=== PATIENT | female | born 1965 | race Asian ===

== ENCOUNTER 2022-11-21 12:23 | Emergency (ER) | payer BC, SELFPAY ==
[2022-11-21 12:32] VITALS: BP 111/74; PULSE 75; RESP 16; TEMP 36.8; O2SAT 96; BMI 25.2
--- NOTE | 2022-11-21 14:26 | ED_ITS ---
HPI - General Adult General Date Seen: 11/21/22 Chief complaint: Ear/Nose/Throat Problem Stated complaint: Ring ear and an echo Time Seen by Provider: 11/21/22 13:10 Source: patient Mode of arrival: ambulatory Limitations: no limitations History of Present Illness HPI narrative: Patient is a 56-year-old woman who presents for evaluation of tenderness. She tells me that she has had high-pitched tinnitus in her right ear for quite some time, but about a week ago developed an additional pitched tinnitus which is lower pitched in the right ear as well. She specifically denies any hearing loss, she has not had vertigo, she has not had any other facial weakness or numbness, difficulty with swallowing, speech, headache, or other problems. She does say that this additional tinnitus happen on the heels of a choking episode where she was coughing a lot. She was seen several days ago for these symptoms, and at that time they thought she might have an ear infection, it sounds like probably an external ear infection but she was started on both ear drops and azithromycin. She has been taking those, but continues to have tinnitus. 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 Related Data Home Medications Medication Instructions Recorded Confirmed azithromycin 250 mg tablet 250 mg PO DAILY 11/21/22 11/21/22 losartan 50 mg tablet (Cozaar) 50 mg PO DAILY 11/21/22 11/21/22 [id number]-nrzrtwjmz-xebyfkxht 3.5 3 drp otic (ear) Q8H 11/21/22 11/21/22 mg-10,000 unit/mL-1 % ear drops,susp Allergies Allergy/AdvReac Type Severity Reaction Status Date / Time iodine Allergy Severe Anaphylaxis Verified 11/21/22 12:45 aspirin Allergy Mild Verified 11/21/22 12:45 diphenhydramine Allergy Mild Verified 11/21/22 12:45 ibuprofen [From Motrin] Allergy Mild Verified 11/21/22 12:45 metoprolol Allergy Mild Verified 11/21/22 12:45 DAMARIS Inhibitors Allergy Unknown Verified 11/21/22 12:45 iopamidol Allergy Unknown Verified 11/21/22 12:45 levofloxacin Allergy Unknown Verified 11/21/22 12:45 Penicillins Allergy Unknown Verified 11/21/22 12:45 spironolactone Allergy Unknown Verified 11/21/22 12:46 Sulfa (Sulfonamide Allergy Unknown Verified 11/21/22 12:45 Antibiotics) valsartan [From Diovan] Allergy Unknown Verified 11/21/22 12:46 diuretics Allergy Unknown Uncoded 11/21/22 12:45 hydrochlorothaizide Allergy Unknown Uncoded 11/21/22 12:46 iodinated diagnostic Allergy Unknown Uncoded 11/21/22 12:45 maxide Allergy Unknown Uncoded 11/21/22 12:45 potasium Allergy Unknown Uncoded 11/21/22 12:46 vit D2 Allergy Unknown Uncoded 11/21/22 12:45 Review of Systems Status of ROS: Reports: 6 or more systems reviewed and unremarkable except as noted in History and below PFSH PFS Social History Smoking Status: Never smoker Do you use any of these nicotine containing products: None How often do you have a drink containing alcohol: never How often do you have six or more drinks on one occasion: Never AUDIT-C Alcohol total score: 0 Non-prescribed substance use: denies use Exam Narrative: Exam Narrative: Vital signs reviewed In general, an alert, nontoxic woman. Head: Normocephalic, atraumatic. Eyes: Pupils are equal reactive, extraocular movements are full. ENT: Bilateral canals are normal, I do not see any evidence of erythema or edema in the right canal, TM is normal. Landmarks are seen. Pinna is normal, no adenopathy or erythema. Hearing is grossly normal. Neck: Supple without adenopathy or masses. Const: Vital Signs, click to edit/add: Vital Signs - 24 hr 11/21/22 12:32 Temperature 98.3 F Pulse Rate [Right Pulse Oximeter] 75 Respiratory Rate 16 Blood Pressure [Ri ght Upper Arm] 111/74 Pulse Oximetry 96 Oxygen Delivery Me thod Room Air Course Course Hospital Course: I was able to talk briefly with Dr. Diallo, he can see her in clinic next week with audiology follow-up. I have talked with her about imaging, as she was hoping to do a CT scan today. Discussed with her that while imaging may ultimately be recommended, I would recommend ENT followup 1st. Number one, I do not know that imaging is necessary, and 2., if it is, I do not know that CT scan would be the best choice. Therefore, I think imaging is necessary today. She does not have any neurologic complaints no deficits on exam. I think the likelihood of her symptoms being due to a mass or stroke is very low. Discussed with her that it can be difficult to treat tinnitus, and that I do not have a medication that is likely to magically resolve this. Per Dr. Diallo's recommendation I am starting her on prednisone, however she says that she is very sensitive to all medications and so she is unwilling to take a full dose. She says she will take half dose and see if it is helpful. Have tried to stress to her that I do not expect that this will necessarily fix her tinnitus. Return for new or worsening symptoms. Vital Signs Vital signs: Initial Vital Signs Temperature 98.3 F 11/21/22 12:32 Temperature Source Temporal Artery Scan 11/21/22 12:32 Pulse Rate 75 11/21/22 12:32 Respiratory Rate 16 11/21/22 12:32 Blood Pressure 111/74 11/21/22 12:32 Blood Pressure Mean 86 11/21/22 12:32 Blood Pressure Position Sitting 11/21/22 12:32 Pulse Oximetry 96 11/21/22 12:32 Oxygen Delivery Method 11/21/22 12:32 Vital Signs Temperature 98.3 F 11/21/22 12:32 Pulse Rate 75 11/21/22 12:32 Respiratory Rate 16 11/21/22 12:32 Blood Pressure 111/74 11/21/22 12:32 Pulse Oximetry 96 11/21/22 12:32 Oxygen Delivery Method 11/21/22 12:32 Temperature 98.3 F 11/21/22 12:32 Pulse Rate 75 11/21/22 12:32 Respiratory Rate 16 11/21/22 12:32 Blood Pressure 111/74 11/21/22 12:32 Pulse Oximetry 96 11/21/22 12:32 Oxygen Delivery Method 11/21/22 12:32 Discharge Plan Discharge Clinical Impression: Tinnitus of right ear Patient Disposition: Home, Self-Care Condition: Stable Instructions: Tinnitus (ED) Additional Instructions: Dr. Diallo would recommend that he see you next week, as the rim fire charger operator is g one this week. He recommends that I prescribe steroids in the meantime, and that you use ear plugs on the airplane. You can buy these at any drugstore. Call the clinic tomorrow, to schedule an appointment with Dr. Diallo. His clinic is often booked, so if they tell you that he is full, you can say that the ER doctor talked with him and it is okay to put you on the schedule for next week to see him and for audiology. Take prednisone as follows: 3 tabs daily for 3 days, then 2 tabs daily for 3 days, then 1 tab daily for 3 days. Prescriptions: No Action losartan [Cozaar] 50 mg tablet 50 mg PO DAILY drtwuowk-nxmnqqikw-GV 3.5-10,000-1 mg/mL-unit/mL-% drops,suspension 3 drp otic (ear) Q8H Label Comments: SHAKE LIQUID AND INSTILL 3 DROPS TO RIGHT EAR THREE TIMES DAILY FOR 7 DAYS azithromycin 250 mg tablet 250 mg PO DAILY Label Comments: TAKE 2 TABLETS TODAY AND THEN 1 TABLET DAYS 2-5 BY MOUTH Follow Up/Referrals: Lynne Funk MD [Primary Care Provider] - Stand Alone Forms: [employer] Info Instructions
== END 2022-11-21 14:28 | disposition home or self-care (01) ==
LOC: ED 13:56
PROVIDERS: Emergency Provider Emergency Medicine; PCP Family Medicine
DX: H93.11 Tinnitus, right ear (principal)
CPT/HCPCS: 99283; 99284

== ENCOUNTER 2024-10-24 19:53 | Emergency (ER) | payer BC, SELFPAY ==
--- OUTSIDE RECORDS SUMMARY | 2024-10-24 19:54 | XMS_ITS | Clinical Summary ---
Author Organization [facility] Address [address] [place] [address] Care Team Providers Care Supervisor Toy Assembly Name Role Phone Unavailable Primary Care Provider Unavailabl e Source Comments Patient records contain information from all sites at [facility]. For routine questions regarding patient records, call [phone] during business hours, M-F 8:00 AM - 5:00 PM Central Time. Record requests for emergency care only can be directed to [phone] at any time.[facility] Active Problems Problem Noted Date Diagnosed Date Dizziness 03/23/2023 Tinnitus Right 03/23/2023 Loss Hearing Mixed Conduct Sensorineural 023 Immunizations Immunization Administration Dates Next Due Influenza Split 06/19/2013 Social History Tobacco Use Types Packs/Day Years Used Date Smoking Tobacco: Never Nutrition Answer Date Recorded Nutrition: EVOO Fat Source Unknown 11/21 Nutrition: Servings of Fruits/Vegetables per Day Not on file 11/21/2020 Dental Answer Date Recorded Dental: Regular Dentist Unknown 11/22/19 21 Comments Unknown Sex and Gender Information Value Date Recorded Sex Assigned at Not on file 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 Pulse 61 11/02/2013 1:14 PM LINEN ROOM HOUSEPERSON Vital sign result from Clinical Notes. Temperature - - Respiratory Rate - - Oxygen Saturation - - Inhaled Oxygen Concentration - - Weight 64.3 kg (141 lb 12.1 oz) 10/26/2013 1:57 PM LINEN ROOM HOUSEPERSON Vital sign result from Clinical Notes. Height 163 cm (5' 4.17) 09/26/2013 4:1 3 PM LINEN ROOM HOUSEPERSON Body Mass Index 24.2 09/26/2013 4:13 PM LINEN ROOM HOUSEPERSON Plan of Treatment Health Maintenance Due Date Last Done Comments CT Colonography 1963 Cologuard 1965 Colonoscopy 1965 Colorectal Cancer Screening 1963 FIT 1965 HIV Screening 1965 Hepatitis C Screening 1965 Pneumococcal vaccine (50+ years) (1 of 2 - PCV) 12/04/1982 Cervical/Vaginal Cancer Screening 09/19/2014 09/19/2011 (Performed elsewhere) Zoster Vaccines (2 of 2) 12/31/2021 11/05/2021 Mammogram 11/19/2023 11/18/2022, 10/20, 11/04/2020, Additional history exists COVID-19 Vaccine ( season) 2024 08/08/2022, 10/02/2021, 01/13/2021, Additional history exists Influenza Vaccine (#1) 2024 , 08/01/2022, 07/08/2021, Additional history exists Depression Screening (Annual PHQ-2) 09/19/2024 Fasting Glucose for Diabetes Screening 02/10/2026 02/10/2023, 11/18/2022, 11/05/2021, Additional history exists Lipid (Cholesterol) Screening 02/11/2028 02/10/2023, 11/18/2022, 11/05/2021, Additional history exists DTaP,Tdap,and Td Vaccines (3 - Td or Tdap) 11/05/2031 11/05/2021, 08/25/2010 Hepatitis B Vaccines Aged Out No long er eligible based on patient's age to complete this topic IPV Vaccines Aged Out No longer eligi ble based on patient's age to complete this topic Procedures Procedure Name Priority Date/Time Associated Diagnosis Comments GLUCOSE, FASTING, S/P Routine 11/01/2013 10:32 AM LINEN ROOM HOUSEPERSON LIPID PANEL, S Routine 10/08/2013 3:23 PM LINEN ROOM HOUSEPERSON from Last 3 Months or Most Recently Relevant to Health Maintenance Results * Glucose, Fasting (11/01/2013 10:32 AM LINEN ROOM HOUSEPERSON) Last Intake 14 HR [facility] Glucose, P 97 70 - 100 MG/DL [facility] 11/01/2013 10:3 2 AM LINEN ROOM HOUSEPERSON 11/01/2013 10:32 AM LINEN ROOM HOUSEPERSON us Mk Schaffer M.D. LAB BLOOD NON ADD-ON Final Res ult [facility] [address] [place] [address], [facility] * (ABNORMAL) Lipid Panel (10/08/2013 3:23 PM LINEN ROOM HOUSEPERSON) Cholesterol, Total 230 SeeComment MG/DL [facility] Comment: Reference Range: NCEP guidelines (ages 18y and up) Desirable: <200 Borderline high: 200-239 High: > or =240 Triglycerides 467(H) SeeComment MG/DL [facility] Comment: Reference Range: NCEP guidelines (ages 18y and up) Normal: <150 Borderline high: 150-199 High: 200-499 Very high: > or =500 Cholesterol, Non-HDL, Calculated 189(H) SeeComment MG/DL [facility] Comment: Reference Range: NCEP guidelines Desirable: <130 Borderline high: 130-159 High: 160-189 Very high: > or =190 Calculated LDL . MG/DL [facility] Comment: Triglyceride >400 mg/dL. Calculated LDL is only valid on samples with triglyceride < or = 400 mg/dL. REVISED REPORT, Previously reported as: TNP Triglyceride >400 mg/dL. Calculated LDL is only valid on samples with triglyceride < or = 400 mg/dL. (Reported 10/08/2013 16:53) Cholesterol, HDL, S 41 SeeComment MG/DL [facility] Comment: Reference Range: NCEP guidelines (ages 18y and up) Low: <40 Normal: 40-59 High : > or =60 10/08/2013 3:23 PM LINEN ROOM HOUSEPERSON 10/08/2013 3:23 PM LINEN ROOM HOUSEPERSON Mk Schaffer M.D. LAB BLOOD ADD-ON Final Result [facility] [address] [place] [address], [facility] from Last 3 Months or Most Recently Relevant to Health Maintenance Insurance [id number]
--- OUTSIDE RECORDS SUMMARY | 2024-10-24 19:55 | XMS_ITS | Referral Summary ---
Author Organization [facility] Address [address] [place] [id number] Care Team Providers Care Manager Talent Acquisition Name Role Phone Amy Ragsdale MD Unavailable [phone] Felicitas Martin AuD Unavailable [phone] Amy Ragsdale MD Unavailable [phone] Allergies Active Allergy Reactions Criticality Noted Date Comments Allen Inhibitors Angioedema,Cough High 01/30/2013 Aspirin Anaphylaxis High 02/03/2011 Clarithromycin Other (See Comments) ,GI Disturbance 10/16/2015 Dexamethasone Unknown 03/21/2023 Diphenhydramine Other (See Comments) Low 04/23/2011 Ergocalciferol Headache 10/05/2010 Ibuprofen GI Disturbance High 02/03/2011 Iodinated Contrast Media Anaphylaxis High 08/05/2010 Iodine Anaphylaxis High 11/21/2022 Levofloxacin Rash Low 03/02/2012 Metoprolol Dizziness,Other (See Comments) High 01/30/2013 Penicillins Anaphylaxis High 08/04/2007 Potassium Unknown 03/21/2023 Spironolactone Unknown 11/21/2022 Sulfa Antibiotics Anaphylaxis High 02/10/2023 Valsartan Unknown 11/21/2022 Medications COZAAR 50 MG tablet TAKE 2 TABLETS BY MOUTH PER DAY Active estradiol (ESTRACE) 0.1 MG/GM vaginal cream Place 1 g vaginally Active Social History Tobacco Use Types Packs/Day Years Used Date Smoking Tobacco: Never Smokeless Tobacco: Never Tobacco Cessation:Counseling Given: Not Answered Alcohol Use Standard Drinks/Week Comments Not Currently 0 (1 standard drink = 0.6 oz pur e alcohol) PHQ-2 Answer Date Recorded PHQ-2 Score 3 04/19/2023 Adolescent Education Answer Date Record ed Getting School Help Needed Not on file 06/15 Comments Unknown Sex and Gender Information Value Date Recorded Sex Assigned at Not on file 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 Gender Identity Not on file Sexual Orientation Not on file Last Filed Vital Signs Vital Sign Reading Time Taken Comments Blood Pressure 126/83 04/19/2023 9:03 AM CDT Pulse 72 04/19/2023 9:03 AM CDT Temperature 36.1 C (96.9 F) 04/19/2023 9:03 AM CDT Respiratory Rate - - Oxygen Saturation 97% 04/19/2023 9:03 AM CDT Inhaled Oxygen Concentration - - Weight 67.6 kg (149 lb) 04/19/2023 9:03 AM CDT Height 162.6 cm (5' 4) 04/19/2023 9:03 AM CDT Body Mass Index 25.58 04/19/2023 9:03 AM CDT Plan of Treatment Not on file Insurance [facility] [employer] CATHIE CASTELLON [id number] [facility] [employer] Care Teams Manager Talent Acquisition Relationship Specialty Start Date End Date Amy Ragsdale MD [address] [place] [id number] Otolaryngology 02/21/23 Felicitas Martin AuD [address] [place] [address] [id number] Case Checker Audiology 02/21/23 Amy Ragsdale MD [address] [place] [address] [id number] Assigned Surgical Provider 04/30/23
--- OUTSIDE RECORDS SUMMARY | 2024-10-24 19:55 | XMS_ITS | Clinical Summary ---
Author Organization [facility] Address [address] [place] [address] Care Team Providers Care Electrician Machine Shop Name Role Phone Amy Ragsdale MD Unavailable [phone] Felicitas Martin AuD Unavailable [phone] Amy Ragsdale MD Unavailable [phone] Allergies Active Allergy Reactions Criticality Noted Date [...] on file Legal Sex Female 3:39 AM APN Gender Identity Not on file Sexual Orientation [...] 04/19/2023 9:03 AM CDT Plan of Treatment Health Maintenance Due Date Last Done Comments ADVANCE CARE PLANNING 1965 ANNUAL REVIEW OF HM ORDERS 1963 CT COLONOGRAPHY 1963 FIT 1965 FLEX SIG 1963 GLUCOSE 1963 sDNA (Cologuard) 1965 COLONOSCOPY 12/04/1973 COLORECTAL CANCER SCREENING 12/04/1973 HIV SCREENING 12/04/1978 HEPATITIS C SCREENING 12/04/1981 LIPID 2003 Pneumococcal Vaccine: 50+ Years (1 of 1 - PCV) 12/04/2013 ZOSTER IMMUNIZATION (2 of 2) 12/31/2021 11/05/2021 YEARLY PREVENTIVE VISIT 11/19/2023 11/19/19 23, 11/05/2021, 11/04/2020 COVID-19 Vaccine ( season) 2024 08/08/2022, 10/02/2021, 01/13/2021, Additional history exists INFLUENZA VACCINE (#1) 2024 , 07/08/2021, 07/14/2020, Additional history exists PHQ-2 (once per calendar year) 2024 04/19/2023, 04/19/2023 MAMMO SCREENING 11/18/2024 11/18/2022 PAP 11/18/2025 11/18/2022 DTAP/TDAP/TD IMMUNIZATION (3 - Td or Tdap) 11/05/2031 11/05/2021, 08/25/2010, 07/20/2000 RSV VACCINE (1 - 1-dose 75+ series) 12/04/2038 HPV IMMUNIZATION Aged Out No longer e ligible based on patient's age to complete this topic MENINGITIS IMMUNIZATION Aged Out No l onger eligible based on patient's age to complete this topic Insurance [facility] [place] [place] [id number] [facility] [employer] CATHIE CASTELLON [id number] Care Teams Electrician Machine Shop Relationship Specialty Start Date End Date Amy Ragsdale MD [address] [facility] [address] [place], [place] [phone] Otolaryngology 02/21/23 Felicitas Martin AuD [address] [place] [address] Boom Stick Man Audiology 02/21/23 Amy Ragsdale MD [address] [facility] [address] [place] [address] Assigned Surgical Provider 04/30/23
--- OUTSIDE RECORDS SUMMARY | 2024-10-24 19:55 | XMS_ITS | Clinical Summary ---
Author Organization [employer] [facility] Address [place], [place] [address] Care Team Providers Care Boatswain'S Mate Name Role Phone Lynne Funk MD Primary Care Provide r Allergies Active Allergy Reactions Criticality Noted Date Comments Allen Inhibitors Cough,Angioedema High 01/30/2013 Aspirin Anaphylaxis High 02/03/2011 Clarithromycin Confusion,GI Upset,Nausea Only,Other - Describe In Comment Field 10/16/2015 Dexamethasone *Unknown,*Unknown - Follow up needed 03/21/2023 Diphenhydramine Sedation,Other - Describe In Comment Field Low 04/23/2011 Ergocalciferol (Vitamin D2) Headache 10/05/2010 Ibuprofen GI Bleeding,Nausea Only High 02/03/2011 Iodinated Contrast Media Anaphylaxis High 08/05/2010 Iodine Anaphylaxis High 11/21/2022 Iopamidol Anaphylaxis High 11/21/2022 Levofloxacin Rash Low 03/02/2012 Metoprolol Dizziness,Hypotensi on,Other - Describe In Comment Field High 01/30/2013 Penicillins Anaphylaxis High 08/04/2007 Potassium *Unknown,*Unknown - Follow up needed 03/21/2023 Varicella-Zoster Ge-As01b (Pf) Fever High 03/09/2022 Spironolactone *Unknown 11/21/2022 Sulfa (Sulfonamide Antibiotics) *Unknown,Anaphylaxi s High 03/02/2012 Pharmacy gave clinic this information Unlisted Allergen (Include Detail In Comments) *Unknown - Follow up needed 11/21/2022 Valsartan *Unknown 11/21/2022 Medications Vitamin D3-Menaquinone 7 25 mcg (1,000 unit)-90 mcg TbDi Take 1,000 units by mouth once daily. Active hydrocortisone (ANUSOL-HC) 2.5 % rectal creamIndication s:Hemorrhoids, external Apply topically to affected area(s) two times daily. To irritated hemorrhoids 56 g 3 4 Active nystatin-triamc inolone (MYTREX) ointmentIndicat ions:Periorbita l dermatitis Apply topically to affected area(s) two times daily. 15 g 2 4 Active LORazepam (ATIVAN) 0.5 mg tabIndications: Acute hearing loss of right ear Take 1 Tablet (0.5 mg) by mouth at bedtime if needed for Sleep. 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 Vitamin D deficiency 08/25/2010 Pain in joint, shoulder region 08/25/2010 Edema 08/21/2009 HTN (hypertension) 08/08/2008 Overview (12/02/2009): Updated by system to replace inactive record Abnormal hemoglobin (Hgb) 08/08/2008 Encounters Date Type Department Care Team Description 10/24/2024 Nurse Triage [facility] [address] [place] [address] Lynne Funk MD Cough from Last 3 Months Immunizations Name Administration Dates Next Due AMB Influenza, IIV3 (Age >=3 years)(Flu Clinic Only) 08/03/2012 AMB Influenza, IIV4 PF (=>6 mos Flulaval,Fluzone Fluarix)(Flu Clinic Only) 07/14/2020,06/09/2017,06/11/2016,2014 COVID-19 vaccine (Moderna 100mcg/0.5mL) PF, MDV 10/02/2021,01/13/2021,12/18/2020 Influenza A (H1N1), Inactivated 08/26/2009 Influenza, IIV3 (Age 6-35 mos) 06/27/2010 Influenza, IIV3 (Age >=3 years) 07/08/20 21,08/03/2012,06/15/2011,2005,09/02/2003 Influenza, IIV4 07/31/2018, 7,06/11/2016,2013,06/25/2013 Influenza, IIV4 (=>6mos) MDV 07/26/2019 Influenza, Injectable, Mdck, Quadrivalent, W/preservative 07/04/2023 Influenza,CCIIV4 PRESERV FREE 08/01/2022 Td (Age >=7 Years) 07/20/2000 Tdap 11/05/2021,08/25/2010 Zoster (Shingrix-RZV, recombinant) 11/05/2021 Family History Medical History Relation Name Comments Heart Disease Brother 1 hole in his h eart Heart Disease Brother 2 AR age 60 Blood Disease Daughter Leukemia Heart Disease Father AR at 60, at 72 of another AR Hypertension Maternal Grandmother Good Health Mother Cancer-breast No Family History Relation Name Status Comments Brother 1 Brother 2 Daughter Father Maternal Grandmother Mother Social History Tobacco Use Types Packs/Day Years Used Date Smoking Tobacco: Never Smokeless Tobacco: Never Tobacco Cessation:Counseling Given: Yes Comments:no exposure Alcohol Use Standard Drinks/Week Comments No 0 (1 standard drink = 0.6 oz pur e alcohol) PHQ-2 Answer Date Recorded PHQ-2 TOTAL SCORE 0 11/29/2023 Social Connections Answer Date Recorded Do you often feel lonely or isolated from those around you? 0 11/26/2023 Financial Resource Strain Answer Date R ecorded Difficulty of Paying Living Expenses 3 11/26/2023 Difficulty of Paying Living Expenses Not on file 11/26/2023 Food Insecurity Answer Date Recorded Do you worry your food will run out before you are able to buy more? 1 11/26/2023 Transportation Needs Answer Date Record ed Does lack of transportation keep you from medica l appointments? 1 11/26/2023 Does lack of transportation keep you from work, meetings or getting things that you need? 1 11/26/2023 Housing Stability Answer Date Recorded What is your housing situation today? 1 11/26/2023 Utilities Answer Date Recorded Do you have trouble paying f or utilities (for example, heat, electricity, water, phone)? 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 Gender Identity Not on file Sexual Orientation Not on file Obstetrics History Para Term AB IAB SAB Ectopic Multiple Livin g Live Births 1 1 0 1 1 Date Outcome GA Total Labor Labor/2nd/3rd Weight Sex Type Anes PTL Annabelle A1 A5 Name Clin Last Filed Vital Signs Vital Sign Reading Time Taken Comments Blood Pressure 119/80 03/09/2024 10:25 AM CDT Pulse 56 03/09/2024 10:25 AM CDT Temperature 36.8 C (98.2 F) 03/21/2023 12:25 PM CDT Respiratory Rate 14 03/09/2024 10:25 AM CDT Oxygen Saturation 92% 03/09/2024 10:25 AM CDT Inhaled Oxygen Concentration - - Weight 66.4 kg (146 lb 6.4 oz) 11/29/2023 9:50 A M CDT Height 161.9 cm (5' 3.75) 11/29/2023 9:50 AM CD T Body Mass Index 25.33 11/29/2023 9:50 AM CDT Plan of Treatment Upcoming Encounters Date Type Department Care Team (Late st Contact Info) Description 12/11/2024 9:40 AM CDT Ancillary Procedure [facility] [address] [place] [address] 12/11/2024 10:05 AM CDT Office Visit [facility] [address] [place] [address] Lynne Funk MD [address] [place] [address] Health Maintenance Due Date Last Done Comments Pneumococcal series for age 50+ (1 of 1 - PCV) 12/04/2013 Zoster (shingles) series for age 50+ (2 of 2) 12/31/2021 11/05/2021 COVID-19 vaccine series ( - season) 2024 08/08/2022, 10/02/2021, 01/13/2021, Additional history exists Influenza for age 50-64 05/20/2024 07/04/20 23, 08/01/2022, 07/08/2021, Additional history exists BMI (ht and wt on same day) for age 18+ 11/28/2024 11/29/2023, 03/21/2023, 02/10/2023, Additional history exists Depression screening for age 12+ 11/28/2024 11/29/2023, 11/29/2023, 11/20/2022, Additional history exists Mammogram for age 45-75 11/28/2024 11/29/19 24, 11/18/2022, 11/05/2021, Additional history exists Pap test for age 21-65 11/19/2027 3, 11/18/2022, 11/01/2019, Additional history exists Lipids for age 45-75 11/28/2028 11/29/2023, 02/10/2023, 11/18/2022, Additional history exists Tetanus booster 11/05/2031 11/05/2021, 03/2010, 07/20/2000 Colonoscopy through age 75 03/09/203403/09, 03/09/2024, 03/09/2024, Additional history exists RSV vaccine for adults or (1 - 1-dose 75+ series) 12/04/2038 Hepatitis C screening for ag e 18-79 Completed 11/01/2019 Tdap Completed 11/05/2021, 08/25/2010 HIV for age 15-65 Completed 11/29/2023 Procedures Procedure Name Priority Date/Time Associated Diagnosis Comments COLONOSCOPY SCREENING Routine 03/09/2024 9:18 AM CDT Screening for colon cancer ANTI HIV 1/2 Routine 11/29/2023 11:12 AM CDT Screening for HIV (human immunodeficiency virus) LIPID PANEL W REFLEX MEASURED LDL Routine 11/29/2023 11:12 AM CDT Lipid screening XR MAMMO ANABEL BILAT SCREEN Routine 11/29/2023 10:20 AM CDT Visit for screening mammogram HPV HIGH RISK Routine 11/18/2022 11:40 AM 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 Cervical cancer screening ANTI HCV Routine 11/01/2019 9:35 AM 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 Encounter for hepatitis C screening test for low risk patient from Last 3 Months or Most Recently Relevant to Health Maintenance Results * COLONOSCOPY (03/09/2024 8:42 AM CDT) 03/09/2024 8:42 AM CDT Narrative Transcriptions Osvaldo Johnson MD - 03/09/2024 10:20 AM CDT Patient Name: Berlin Dicjarrod Procedure Date: 03/09/2024 Gender: Female Date of : 1965 Admit Type: Outpatient Procedure: Colonoscopy Proceduralist: Osvaldo Johnson MD , Kathy Javier (Nurse)Dianne RN (Nurse) Indications/Pre-Op Diagnosis: Screening for colorectal malignant neoplasm, Last colonoscopy: November 2013 Medications: Fentanyl 100 micrograms IV, Midazolam 1 mgIV, The level of sedation administered wasmoderate Procedure Description: The patient had risks, benefits and alternatives explained to andgave informed consent. The patient had a stable cardiopulmonary status and judged an adequate candidate for conscious sedation. The endoscope PCF-H190L [id number] was passed through the anus andadvanced to the cecum, identified by appendiceal orifice and ileocecal valve.The colonoscopy was performed without difficulty. The patient toleratedthe procedure well. The quality of the bowel preparation was good. The ileocecal valve, appendiceal orifice, and rectum were photographed. Complications: No immediate complications. Estimated Blood Loss & Specimen: Estimated blood loss: none. Specimen collected - Yes and sent to Laboratory Findings: The perianal and digital rectal examinations were normal. Two sessile polyps were found in the sigmoid colon. The polyps were 2mm in size. These polyps were removed with a cold biopsy forceps.Resection and retrieval were complete. Internal hemorrhoids were found during retroflexion. The hemorrhoids were mild. The exam was otherwise without abnormality on direct and retroflexion views. Impressions/Post-Op Diagnosis: - Two 2 mm polyps in the sigmoid colon, removed with a cold biopsy forceps. Resected and retrieved. - Internal hemorrhoids. - The examination was otherwise normal on direct and retroflexionviews. Recommendation: - Patient has a contact number available for emergencies. The signsand symptoms of potential delayed complications were discussed with the patient. Return to normal activities tomorrow. Written discharge instructions were provided to the patient. - Resume previous diet. - Continue present medications. - Await pathology results. - Repeat colonoscopy is recommended. The colonoscopy date will be determined after pathology results from today's exam become available for review. - Use FiberCon 2 tablets PO daily for 6 months. Moderate Sedation: A time out was performed before the procedure. Moderate (conscious) sedation was administered by the endoscopy nurse and supervised bythe endoscopist. The following parameters were monitored: oxygensaturation, heart rate, blood pressure, EKG, CO2, respiratory rate, adequacy of pulmonary ventilation and reponse to care. Please refer to the patient's medical record flowsheets and nursing notes for moderate sedation details. Total physician intraservice time was 15 minutes. Osvaldo Johnson MD 03/09/2024 10:13:41 AM This report has been signed electronically. Note Initiated On: 03/09/2024 8:42 AM Procedure Code(s): --- Professional --- 66151, Colonoscopy, flexible; with biopsy, single or multiple Diagnosis Code(s): --- Professional --- Z12.11, Encounter for screening formalignant neoplasm of colon D12.5, Benign neoplasm of sigmoid colon K64.8, Other hemorrhoids CPT copyright 2022 [employer]. All rights reserved. The codes documented in this report are preliminary and upon boatbuilder wood reviewmay be revised to meet current compliance requirements. Scope In: 9:52:17 AM Scope Withdrawal Time 0 hours 8 minutes 50 seconds Scope Out: 10:05:20 AM us Osvaldo Johnson MD PROCEDURE ORD Edited Re sult - Final * (ABNORMAL) LIPID PANEL W REFLEX MEASURED LDL (11/29/2023 11:12 AM CDT) CHOLESTEROL,TOTAL 241(H) 100 - 199 mg/dL 11/29/2023 9:48 PM CDT [facility] Comment: Cholesterol, Total Reference Ranges Desirable <200 mg/dL Borderline 200-239 mg/dL High >=240 mg/dL TRIGLYCERIDES 169(H) <150 mg/dL 11/29/2023 9:48 PM CDT [facility] HDL CHOLESTEROL 55 >40 mg/dL 9:48 PM CDT [facility] NON-HDL CHOLESTEROL 186(H) <145 mg/dl 11/29/2023 9:48 PM CDT [facility] CHOL/HDL RATIO 4.38 <4.50 11/29/2023 9:48 PM CDT [facility] LDL CHOLESTEROL 152(H) <=130 mg/dL 11/29/2023 9:48 PM CDT [facility] VLDL CHOLESTEROL 34(H) <=30 mg/dL 11/29/2023 9:48 PM CDT [facility] PROVIDER ORDERED STATUS RANDOM 11/29/2023 9:48 PM CDT [facility] Blood BLOOD SPECIMEN / Unknown Venipuncture / Unknown 11/29/2023 11:12 AM CDT 11/29/2023 11:15 AM CDT Lynne Funk MD CHEMISTRY Final Result Performing Organization Address [facility] Co de Phone Number [facility] [address] [place] [address], [place] * ANTI HIV 1/2 (11/29/2023 11:12 AM CDT) HIV-1/HIV-2 SCREEN Non-Reacti ve Non-Reacti ve 11/30/2023 4:15 AM CDT [facility] Comment:HIV-1 p24 and HIV-1/ HIV-2 Ab Not Detected. Blood BLOOD SPECIMEN / Unknown Venipuncture / Unknown 11/29/2023 11:12 AM CDT 11/29/2023 11:15 AM CDT Lynne Funk MD SEND OUTS Final Result Performing Organization Address [facility] de Phone Number [facility] [address] [place] [address], [place] * XR MAMMO ANABEL BILAT SCREEN (11/29/2023 10:20 AM CDT) Anatomical Region Laterality Modality BREASTS, Breast Left, Breast Right Bilateral Mammography Impressions 11/29/2023 4:09 PM CDT There is no radiographic evidence for malignancy. Recommend annual mammograms. MAMMOGRAM ASSESSMENT: ACR 1 Negative PATIENTS: You will also receive a letter with your examination results in an easy to read format. If you have questions about your results, please contact your referring provider. Narrative 11/29/2023 4:09 PM CDT For Patients: As a result of the Century Cures Act, medical imaging exams and procedure reports are released immediately into your electronic medical record. You may view this report before your referring provider. If you have questions, please contact your health care provider. XR MAMMO ANABEL BILAT SCREEN [[id number]] CLINICAL HISTORY: This is an asymptomatic 57 y.o. patient. INDICATION FOR EXAM: Mammogram Screening. TECHNIQUE: CC & MLO views were obtained. This study was evaluated with the assistance of Computer-Aided Detection. Breast Tomosynthesis was used in interpretation. COMPARISON FILM: Yes 11/18/22 [facility] 11/05/21 [facility] FINDINGS: The breasts are extremely dense, which lowers the sensitivity of mammography. There are no dominant masses, suspicious micro calcifications or areas of architectural distortion. Lynne Funk MD MAMMO Final Result * HPV HIGH RISK (11/18/2022 11:40 AM 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) TYPE 16 Negative Negative 11/23/2022 2:02 PM 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 [facility] TYPE 18 Negative Negative 11/23/2022 2:02 PM 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 [facility] OTHER HIGH RISK TYPES Negative Negative 11/23/2022 2:02 PM 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 [facility] Other (Cervical) Non-Blood / Unknown 11/18/2022 11:40 AM 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 11/19/2022 4:44 PM 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 Narrative [facility] - 11/23/2022 2:02 PM 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 HPV types 16, 18, 31, 33, 35, 39, 45, 51, 52, 56, 58, 59, 66 and 68 DNA were undetectable or below the pre-set threshold. Methodology: Donald Luanne 4800 HPV Test Lynne Funk MD MICROBIOLOGY Final Result [facility] [address] [place] [address], * ANTI HCV (11/01/2019 9:35 AM 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) HEPATITIS C ANTIBODY Non-React marco a Non-React marco a 11/01/2019 6:08 PM 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 [facility] Comment:Antibodies to HCV no t detected; does not exclude the possibility of exposure to HCV. Blood BLOOD SPECIMEN / Unknown Venipuncture / Unknown 11/01/2019 9:35 AM 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 11/01/2019 9:36 AM 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 Lynne Funk MD SEND OUTS Final Result [facility] [address] [place] [address], [place] from Last 3 Months or Most Recently Relevant to Health Maintenance Insurance [employer] Care Teams Boatswain'S Mate Relationship Specialty Start Date End Date Lynne Funk MD [address] [place] [id number] [facility] - General 04/21/06
[2024-10-24 20:02] VITALS: BP 147/90; PULSE 103; RESP 22; TEMP 37.7; O2SAT 94; BMI 25.1
[2024-10-24 20:07] VITALS: PULSE 78; RESP 22; TEMP 37.7; O2SAT 94
[2024-10-24 20:52] LABS: PCR FLU A POSITIVE PCR FLU A (Negative); PCR FLU B Negative PCR FLU B (Negative); PCR RSV Negative PCR RSV (Negative); SARS PCR* Negative SARS-CoV-2 (Negative)
--- NOTE | 2024-10-24 20:54 | ED.FEVER ---
HPI - Fever General Time Seen by Provider: 20:54 Date Seen: 10/24/24 Chief Complaint: Fever Stated Complaint: cough Time Seen by Provider: 10/24/24 20:15 Source: patient and RN notes reviewed Mode of arrival: ambulatory Limitations: no limitations History of Present Illness HPI Narrative: This 58-year-old female started with fevers today. She has significant body aches, she has backache, headache, her legs ache. She is coughing, had a little diarrhea earlier today. She notes her whole chest hurts with coughing. She had a temperature up to 103 at home, took 2 Tylenol and her temperature had come down by the time she got here. She called the nurse line and they advised her to come in. She was concerned that she could have pneumonia. Her symptoms did just start this morning. Related Data Home Medications ?Medication ?Instructions ?Recorded ?Confirmed losartan 50 mg tablet (Cozaar) 50 mg PO DAILY 11/21/22 11/21/22 Allergies Allergy/AdvReac Type Severity Reaction Status Date / Time iodine Allergy Severe Anaphylaxis Verified 07/11/23 19:10 aspirin Allergy Mild Verified 07/11/23 19:10 diphenhydramine Allergy Mild Verified 07/11/23 19:10 ibuprofen (From Motrin) Allergy Mild Verified 07/11/23 19:10 metoprolol Allergy Mild Verified 07/11/23 19:10 DAMARIS Inhibitors Allergy Unknown Verified 07/11/23 19:10 iopamidol Allergy Unknown Verified 07/11/23 19:10 levofloxacin Allergy Unknown Verified 07/11/23 19:10 Penicillins Allergy Unknown Verified 07/11/23 19:10 spironolactone Allergy Unknown Verified 07/11/23 19:10 Sulfa (Sulfonamide Allergy Unknown Verified 07/11/23 19:10 Antibiotics) valsartan (From Diovan) Allergy Unknown Verified 07/11/23 19:10 diuretics Allergy Unknown Uncoded 07/11/23 19:10 hydrochlorothaizide Allergy Unknown Uncoded 07/11/23 19:10 iodinated diagnostic Allergy Unknown Uncoded 07/11/23 19:10 maxide Allergy Unknown Uncoded 07/11/23 19:10 potasium Allergy Unknown Uncoded 07/11/23 19:10 vit D2 Allergy Unknown Uncoded 07/11/23 19:10 Review of Systems Narrative As per HPI. PFSH PFS Medical History (Updated 10/24/24 @ 21:15 by Danni Mendoza MD) Hypertension ?I10 - Essential (primary) hypertension (ICD-10) Social History Smoking Status: Never smoker Do you use any of these nicotine containing products: None How often do you have a drink containing alcohol: never How often do you have six or more drinks on one occasion: Never AUDIT-C Alcohol total score: 0 Non-prescribed substance use: denies use Exam Const Vital Signs, click to edit/add: Vital Signs - 24 hr 10/24/24 20:02 Temperature 100 F H Pulse Rate [Pulse Oximeter] 103 H Respiratory Rate 22 Blood Pressure [Right Upper Arm] 147/90 H Pulse Oximetry 94 Oxygen Delivery Method Room Air This 58-year-old female is seen in exam room for. She was initially sleeping, awakens easily when I come in. Sclera with slight pinkish injection but no periorbital swelling or erythema, no drainage. Speech is normal. Neck is supple, no adenopathy. Lungs are clear, good air entry, no wheezing or crackles, no tachypnea, no accessory muscle use. CV regular rate and rhythm, no murmur, normal S1-S2, no S3-S4. Documenting provider has reviewed patient's vital signs: yes Course Course ED Course: Nursing staff had collected triple viral swab during triage, was able to share with patient that she is positive for influenza A. Discussed the course of the illness. She is within time frame for treatment guidelines for Tamiflu and did review this. She would like to initiate this. Did look in her epic record and her GFR estimated has been over 60 for the last couple years. Will place her on standard Tamiflu dosing from [facility]. Vital Signs Vital signs: Initial Vital Signs Temperature 100 F H 10/24/24 20:02 Temperature Source Temporal Artery Scan 10/24/24 20:02 Pulse Rate 103 H 10/24/24 20:02 Respiratory Rate 22 10/24/24 20:02 Blood Pressure 147/90 H 10/24/24 20:02 Blood Pressure Mean 109 H 10/24/24 20:02 Blood Pressure Position Sitting 10/24/24 20:02 Pulse Oximetry 94 10/24/24 20:02 Oxygen Delivery Method Room Air 10/24/24 20:02 Vital Signs Temperature 100 F H 10/24/24 20:02 Pulse Rate 103 H 10/24/24 20:02 Respiratory Rate 22 10/24/24 20:02 Blood Pressure 147/90 H 10/24/24 20:02 Pulse Oximetry 94 10/24/24 20:02 Oxygen Delivery Method Room Air 10/24/24 20:02 Temperature 100 F H 10/24/24 20:02 Pulse Rate 103 H 10/24/24 20:02 Respiratory Rate 22 10/24/24 20:02 Blood Pressure 147/90 H 10/24/24 20:02 Pulse Oximetry 94 10/24/24 20:02 Oxygen Delivery Method Room Air 10/24/24 20:02 MDM - Fever Lab Data Attestation: I reviewed the patient's lab results. Labs: Lab Results 10/24/24 Range/Units 20:08 SARS-CoV-2 (PCR) Negative SARS-CoV-2 (Negative) Influenza Type A (PCR) POSITIVE PCR FLU A A (Negative) Influenza Type B (PCR) Negative PCR FLU B (Negative) RSV (PCR) Negative PCR RSV (Negative) Discharge Plan Discharge Clinical Impression: Influenza A Patient Disposition: Home, Self-Care Condition: Stable Instructions: Influenza (ED) Additional Instructions: He will take Tamiflu 75 mg twice a day for total of 10 doses, start tonight CHIN. Can use Tylenol per bottle directions for control of fever and body aches. Illness is likely to last anywhere from 5-7 days. You will likely have a lingering cough. If you feel at any point you are worsening instead of improving, having increased difficulty breathing or increasing respiratory issues, do recommend re-evaluation. Try to drink plenty of fluids. You need to quarantine until you are fever free for over 24 hours and improving. Activity Level: Activity as Tolerated Prescriptions: No Action losartan [Cozaar] 50 mg tablet 50 mg PO DAILY Follow Up/Referrals: Lynne Funk MD [Primary Care Provider] - Stand Alone [facility]
--- OUTSIDE RECORDS SUMMARY | 2024-10-24 21:23 | XMS_ITS | Clinical Summary ---
Author Organization [facility] Address [address] [place] [address] Care Team Providers Care Senior Java Web Application Developer Name Role Phone Unavailable Primary Care Provider Unavailabl e Source Comments Patient records contain information from all sites at [facility]. For routine questions regarding patient records, call [phone] during business hours, M-F 8:00 AM - 5:00 PM Central Time. 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 Pulse 61 11/02/2013 1:14 PM RETAIL STORE CLERK Vital sign result from Clinical Notes. Temperature - - Respiratory Rate - - Oxygen Saturation - - Inhaled Oxygen Concentration - - Weight 64.3 kg (141 lb 12.1 oz) 10/26/2013 1:57 PM RETAIL STORE CLERK Vital sign result from Clinical Notes. Height 163 cm (5' 4.17) 09/26/2013 4:1 3 PM RETAIL STORE CLERK Body Mass Index 24.2 09/26/2013 4:13 PM RETAIL STORE CLERK Plan of Treatment Health Maintenance Due Date [...] GLUCOSE, FASTING, S/P Routine 11/01/2013 10:32 AM RETAIL STORE CLERK LIPID PANEL, S Routine 10/08/2013 3:23 PM RETAIL STORE CLERK from Last 3 Months or Most Recently Relevant to Health Maintenance Results * Glucose, Fasting (11/01/2013 10:32 AM RETAIL STORE CLERK) Last Intake 14 HR [facility] Glucose, P 97 70 - 100 MG/DL [facility] 11/01/2013 10:3 2 AM RETAIL STORE CLERK 11/01/2013 10:32 AM RETAIL STORE CLERK us Mk Schaffer M.D. LAB BLOOD NON ADD-ON Final Res ult [facility] [address] [place] [address], [facility] * (ABNORMAL) Lipid Panel (10/08/2013 3:23 PM RETAIL STORE CLERK) Cholesterol, Total 230 SeeComment MG/DL [facility] Comment: Reference Range: NCEP guidelines (ages 18y and up) Desirable: <200 Borderline high: 200-239 High: > or =240 Triglycerides 467(H) SeeComment MG/DL [facility] Comment: Reference Range: NCEP guidelines (ages 18y and up) Normal: <150 Borderline high: 150-199 High: 200-499 Very high: > or =500 Cholesterol, Non-HDL, Calculated 189(H) SeeComment MG/DL [facility] Comment: Reference Range: NCEP guidelines Desirable: <130 Borderline high: 130-159 High: 160-189 Very high: > or =190 Calculated LDL . MG/DL [facility] Comment: Triglyceride >400 mg/dL. Calculated LDL is only valid on samples with triglyceride < or = 400 mg/dL. REVISED REPORT, Previously reported as: TNP Triglyceride >400 mg/dL. Calculated LDL is only valid on samples with triglyceride < or = 400 mg/dL. (Reported 10/08/2013 16:53) Cholesterol, HDL, S 41 SeeComment MG/DL [facility] Comment: Reference Range: NCEP guidelines (ages 18y and up) Low: <40 Normal: 40-59 High : > or =60 10/08/2013 3:23 PM RETAIL STORE CLERK 10/08/2013 3:23 PM RETAIL STORE CLERK Mk Schaffer M.D. LAB BLOOD ADD-ON Final Result [facility] [address] [place] [address], [facility] from Last 3 Months or Most Recently Relevant to Health Maintenance Insurance [facility]
--- OUTSIDE RECORDS SUMMARY | 2024-10-24 21:23 | XMS_ITS | Clinical Summary ---
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 Gender Identity Not on file Sexual [...] Description 12/11/2024 9:40 AM CDT Ancillary Procedure [facility] [address] [place] [address] 12/11/2024 10:05 AM CDT Office Visit [facility] [address] [facility] [address] Lynne Funk MD [address] [place] [address] Health Maintenance Due Date Last Done Comments [...] HPV HIGH RISK Routine 11/18/2022 11:40 AM MULTICUT LINE OPERATOR Cervical cancer screening ANTI HCV Routine 11/01/2019 9:35 AM MULTICUT LINE OPERATOR Encounter for hepatitis C screening test for [...] candidate for conscious sedation. The endoscope [id number] was passed through the anus andadvanced to [...] 8:42 AM Procedure Code(s): --- Professional --- 61565, Colonoscopy, flexible; with biopsy, single or multiple Diagnosis Code(s): --- Professional --- Z12.11, Encounter for screening formalignant neoplasm of colon D12.5, Benign neoplasm of sigmoid colon K64.8, Other hemorrhoids CPT copyright 2022 [employer]. All rights reserved. The codes documented in this report are preliminary and upon rag boiler reviewmay be revised to meet current compliance requirements. Scope In: 9:52:17 AM Scope Withdrawal Time 0 hours 8 minutes 50 seconds Scope Out: 10:05:20 AM us Osvaldo Johnson MD PROCEDURE ORD Edited Re sult - Final * (ABNORMAL) LIPID PANEL W REFLEX MEASURED LDL (11/29/2023 11:12 AM CDT) CHOLESTEROL,TOTAL 241(H) 100 - 199 mg/dL 11/29/2023 9:48 PM CDT [facility] Comment: Cholesterol, Total Reference Ranges Desirable <200 mg/dL Borderline 200-239 mg/dL High >=240 mg/dL TRIGLYCERIDES 169(H) <150 mg/dL 11/29/2023 9:48 PM CDT [facility] HDL CHOLESTEROL 55 >40 mg/dL 9:48 PM CDT [facility] NON-HDL CHOLESTEROL 186(H) <145 mg/dl 11/29/2023 9:48 PM CDT [facility] CHOL/HDL RATIO 4.38 <4.50 11/29/2023 9:48 PM CDT [facility] LDL CHOLESTEROL 152(H) <=130 mg/dL 11/29/2023 9:48 PM CDT [facility] VLDL CHOLESTEROL 34(H) <=30 mg/dL 11/29/2023 9:48 PM CDT [facility] PROVIDER ORDERED STATUS RANDOM 11/29/2023 9:48 PM CDT [facility] Blood BLOOD SPECIMEN / Unknown Venipuncture / Unknown 11/29/2023 11:12 AM CDT 11/29/2023 11:15 AM CDT Lynne Funk MD CHEMISTRY Final Result Performing Organization Address [facility] Co de Phone Number [facility] [address] [place] [address], [place] * ANTI HIV 1/2 (11/29/2023 11:12 AM CDT) HIV-1/HIV-2 SCREEN Non-Reacti ve Non-Reacti ve 11/30/2023 4:15 AM CDT [facility] Comment:HIV-1 p24 and HIV-1/ HIV-2 Ab Not Detected. Blood BLOOD SPECIMEN / Unknown Venipuncture / Unknown 11/29/2023 11:12 AM CDT 11/29/2023 11:15 AM CDT Lynne Funk MD SEND OUTS Final Result Performing Organization Address [facility] de Phone Number [facility] [address] [place] [address], [place] * XR MAMMO ANABEL BILAT SCREEN [...] care provider. XR MAMMO ANABEL BILAT SCREEN [[id number]] CLINICAL HISTORY: This is an asymptomatic 57 y.o. patient. INDICATION FOR EXAM: Mammogram Screening. TECHNIQUE: CC & MLO views were obtained. This study was evaluated with the assistance of Computer-Aided Detection. Breast Tomosynthesis was used in interpretation. COMPARISON FILM: Yes 11/18/22 [facility] 11/05/21 [facility] FINDINGS: The breasts are extremely dense, which lowers the sensitivity of mammography. There are no dominant masses, suspicious micro calcifications or areas of architectural distortion. Lynne Funk MD MAMMO Final Result * HPV HIGH RISK (11/18/2022 11:40 AM MULTICUT LINE OPERATOR) TYPE 16 Negative Negative 11/23/2022 2:02 PM MULTICUT LINE OPERATOR [facility] TYPE 18 Negative Negative 11/23/2022 2:02 PM MULTICUT LINE OPERATOR [facility] OTHER HIGH RISK TYPES Negative Negative 11/23/2022 2:02 PM MULTICUT LINE OPERATOR [facility] Other (Cervical) Non-Blood / Unknown 11/18/2022 11:40 AM MULTICUT LINE OPERATOR 11/19/2022 4:44 PM MULTICUT LINE OPERATOR Narrative [facility] - 11/23/2022 2:02 PM MULTICUT LINE OPERATOR HPV types 16, 18, 31, 33, 35, 39, 45, 51, 52, 56, 58, 59, 66 and 68 DNA were undetectable or below the pre-set threshold. Methodology: Donald Luanne 4800 HPV Test Lynne Funk MD MICROBIOLOGY Final Result [facility] [address] [place] [address], * ANTI HCV (11/01/2019 9:35 AM MULTICUT LINE OPERATOR) HEPATITIS C ANTIBODY Non-React marco a Non-React marco a 11/01/2019 6:08 PM MULTICUT LINE OPERATOR [facility] Comment:Antibodies to HCV no t detected; does not exclude the possibility of exposure to HCV. Blood BLOOD SPECIMEN / Unknown Venipuncture / Unknown 11/01/2019 9:35 AM MULTICUT LINE OPERATOR 11/01/2019 9:36 AM MULTICUT LINE OPERATOR Lynne Funk MD SEND OUTS Final Result [facility] [address] [place] [address], [place] from Last 3 Months or Most Recently Relevant to Health Maintenance Insurance [facility] [employer] Care Teams Draw Frame Tender Relationship Specialty Start Date End Date Lynne Funk MD [address] [place] [id number] [facility] - General 04/21/06
--- OUTSIDE RECORDS SUMMARY | 2024-10-24 21:23 | XMS_ITS | Referral Summary ---
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
--- OUTSIDE RECORDS SUMMARY | 2024-10-24 21:23 | XMS_ITS | Clinical Summary ---
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 Gender Identity Not on file Sexual Orientation [...] patient's age to complete this topic Insurance [facility] [employer] [place] [id number] [facility] [employer] [place] [id number] Care Teams Cane Furniture Maker Relationship Specialty Start Date End Date Amy Ragsdale MD [address] [facility] [address] [place], [place] [address] Otolaryngology 02/21/23 Felicitas Martin AuD [address] [place] [address] Racebook Writer Audiology 02/21/23 Amy Ragsdale MD [address] [facility] [address] [place] [address] Assigned Surgical Provider 04/30/23
== END 2024-10-24 21:23 | disposition home or self-care (01) ==
LOC: ED 21:21
PROVIDERS: Emergency Provider Family Medicine; PCP Family Medicine
DX: J10.1 Influenza due to other identified influenza virus with other respiratory manifestations (principal)
CPT/HCPCS: 87631; 99283